=== PATIENT | male | born 1980 | race Caucasian/White ===

== ENCOUNTER 2018-09-20 11:28 | Emergency (ER) | payer BC ==
[2018-09-20] MEDS ORDERED: Benzocaine 20% Topical Spray UD MUCMEM ONE (11:29)
[2018-09-20] MEDS ORDERED: Lidocaine 2% Viscous Solution 15 ML Cup PO ONE (11:29)
--- NOTE | 2018-09-20 11:31 | EDM.PDOC ---
ED HPI GENERAL MEDICAL PROBLEM - General Chief Complaint: ENT Problem Stated Complaint: ABCESSED TOOTH Time Seen by Provider: 09/20/18 11:28 Source of Information: Reports: Patient History Limitations: Reports: No Limitations - History of Present Illness INITIAL COMMENTS - FREE TEXT/NARRATIVE: HISTORY AND PHYSICAL: History of present illness: Patient is a 37-year-old male who presents to the emergency room with dental pain and soft tissue swelling along the left lower gumline. He states he woke up in the middle of the night with increased pain. He did have some clindamycin left over which she started today. Has been using Tylenol and ibuprofen without any relief. States he is unable to get a hold of any dentist as it is the weekend. Patient denies any fever, chills, headache, change in vision, syncope or near syncope. Denies any chest pain, back pain, shortness of breath or cough. Denies any GI or symptoms. Patient has been eating and drinking appropriately. Review of systems: As per history of present illness and below otherwise all systems reviewed and negative. Past medical history: As per history of present illness and as reviewed below otherwise noncontributory. Surgical history: As per history of present illness and as reviewed below otherwise noncontributory. Social history: See social history for further information Family history: As per history of present illness and as reviewed below otherwise noncontributory. Physical exam: General: Well-developed and well-nourished 29 H her old male. Alert and oriented. Nontoxic appearing and in no acute distress. Vital signs are stable and have been reviewed by me. HEENT: Atraumatic, normocephalic, pupils equal and reactive bilaterally, negative for conjunctival pallor or scleral icterus, mucous membranes moist, TMs normal bilaterally, dental decay noted to the #20 through 18 tooth with soft tissue swelling. He does have soft tissue swelling visible externally along the left lower gumline. His throat clear, neck supple, nontender, trachea midline. No drooling or trismus noted. No meningeal signs. No hot potato voice noted. Lungs: Clear to auscultation, breath sounds equal bilaterally, chest nontender. Heart: S1S2, regular rate and rhythm without overt murmur Abdomen: Soft, nondistended, nontender. Skin: Intact, warm, dry. No lesions or rashes noted. Extremities: Atraumatic, moves all extremities per self without difficulty or deficits, negative for cords or calf pain. Neurovascular unremarkable. Neuro: Awake, alert, oriented. Cranial nerves II through XII unremarkable. Cerebellum unremarkable. Motor and sensory unremarkable throughout. Exam nonfocal. Notes: The need for follow up with dentist was discussed. Medication and supportive care measures were reviewed and discussed. Voices understanding and is agreeable to plan of care. Denies any further questions or concerns at this time. Diagnostics: None Therapeutics: Dental balls, Rocephin IM Prescription: Clindamycin Ames (#15) Impression: Dental Abscess Plan: 1. Please take the antibiotic as prescribed. 2. Tylenol and/or ibuprofen as needed for pain management. "Tooth Balls" have been given to you; apply along the gumline every 2-3 hours as needed. Do not swallow these; external use only. 3. Follow-up with a dentist for definitive care. Return to the ED as needed and as discussed. Definitive disposition and diagnosis as appropriate pending reevaluation and review of above. Left Oral/Mouth Pain Score (Numeric/FACES): 4 - Related Data Allergies Allergy/AdvReac Type Severity Reaction Status Date / Time No Known Allergies Allergy Verified 09/20/18 11:39 Home Meds: Home Meds Acetaminophen/HYDROcodone [Ames 325-5 MG] 1 tab PO Q4H PRN #15 tablet 09/20/18 [Rx] Clindamycin HCl [Cleocin HCl] 300 mg PO TID 7 Days #21 capsule 09/20/18 [Rx] Past Medical History - Past Health History Medical/Surgical History: Denies Medical/Surgical History - Infectious Disease History Infectious Disease History: Reports: None Social & Family History - Family History Family Medical History: Noncontributory - Caffeine Use Caffeine Use: Reports: Coffee, Soda ED ROS ENT - Review of Systems Review Of Systems: ROS reveals no pertinent complaints other than HPI. ED EXAM, ENT - Physical Exam Exam: See Below (See dictation) Course - Vital Signs Last Recorded V/S: Last Vital Signs Temp 97.3 F 09/20/18 11:40 Pulse 73 09/20/18 11:40 Resp 17 09/20/18 11:40 BP 143/84 H 09/20/18 11:40 Pulse Ox 96 09/20/18 11:40 - Orders/Labs/Meds Meds: Medications Discontinued Medications Generic Name Dose Route Start Last Admin Trade Name Kielq PRN Reason Stop Dose Admin Benzocaine 2 each 09/20/18 11:29 Hurricaine One 20% MUCMEM 09/20/18 11:30 ONETIME ONE Ceftriaxone Sodium 1 gm 09/20/18 11:44 Rocephin IM 09/20/18 11:45 ONETIME ONE Lidocaine HCl 15 ml 09/20/18 11:29 Xylocaine 2% Viscous PO 09/20/18 11:30 ONETIME ONE Lidocaine HCl 2 ml 09/20/18 11:45 Xylocaine-Mpf 1% INJECT 09/20/18 11:46 ONETIME ONE Departure - Departure Time of Disposition: 11:59 Disposition: Home, Self-Care 01 Clinical Impression: Dental abscess - Discharge Information Prescriptions: Acetaminophen/HYDROcodone [Ames 325-5 MG] 1 tab PO Q4H PRN #15 tablet PRN Reason: Pain Clindamycin HCl [Cleocin HCl] 300 mg PO TID 7 Days #21 capsule Instructions: Dental Abscess, [id number] Referrals: PCP,None [Primary Care Provider] - Forms: ED Department Discharge Additional Instructions: The following information is given to patients seen in the emergency department who are being discharged to home. This information is to outline your options for follow-up care. We provide all patients seen in our emergency department with a follow-up referral. The need for follow-up, as well as the timing and circumstances, are variable depending upon the specifics of your emergency department visit. If you don't have a primary care physician on staff, we will provide you with a referral. We always advise you to contact your personal physician following an emergency department visit to inform them of the circumstance of the visit and for follow-up with them and/or the need for any referrals to a consulting specialist. The emergency department will also refer you to a specialist when appropriate. This referral assures that you have the opportunity for follow-up care with a specialist. All of these measure are taken in an effort to provide you with optimal care, which includes your follow-up. Under all circumstances we always encourage you to contact your private physician who remains a resource for coordinating your care. When calling for follow-up care, please make the office aware that this follow-up is from your recent emergency room visit. If for any reason you are refused follow-up, please contact the [facility] at and asked to speak to the emergency department charge nurse. [facility] [address] [place] [address] [address] 1. Please take the antibiotic as prescribed. 2. Tylenol and/or ibuprofen as needed for pain management. "Tooth Balls" have been given to you; apply along the gumline every 2-3 hours as needed. Do not swallow these; external use only. 3. Follow-up with a dentist for definitive care. Return to the ED as needed and as discussed.
[2018-09-20] MEDS ORDERED: cefTRIAXone 1 GM Vial IM ONE (11:44)
[2018-09-20] MEDS ORDERED: Lidocaine 1% PF 2 ML SDV INJECT ONE (11:45)
== END 2018-09-20 12:46 | disposition home or self-care (01) ==
LOC: MW.ED 11:28
DX: K04.7 Periapical abscess without sinus (principal)
CPT/HCPCS: 96372; 99282; A9270; J0696; J2001